=== PATIENT | female | born 1985 | race Caucasian/White ===

== ENCOUNTER 2016-11-09 02:56 | Observation (INO) | payer OTHER ==
[~2016-11-09] VITALS: Ht 158 cm; Wt 80.3 kg
[2016-11-09 03:01] VITALS: BP 125/66
== END 2016-11-09 07:10 | disposition home or self-care (01) ==
LOC: 4S 02:56
PROVIDERS: ADMIT Obstetrics & Gynecology; ATTEND Obstetrics & Gynecology
DX: O62.9 Abnormality of forces of labor, unspecified (principal); Z3A.39 39 weeks gestation of pregnancy
CPT/HCPCS: 59025; G0378

== ENCOUNTER 2016-11-11 05:55 | Inpatient (IN) | payer OTHER ==
[~2016-11-11] VITALS: Ht 157.5 cm; Wt 78.9 kg
[2016-11-11] MEDS ORDERED: PREN1TAB80 PO (06:55)
[2016-11-11 06:58] VITALS: BP 107/64
[2016-11-11] MEDS ORDERED: RINGERS SOLUTION,LACTATED 1,000 ML IV SCH ×2 (07:06→07:14)
[2016-11-11] MEDS ORDERED: RINGERS SOLUTION,LACTATED 1,000 ML IV PRN ×2 (07:14→07:21)
[2016-11-11] MEDS ORDERED: CITRIC ACID/SODIUM CITRATE 30 ML SOLUTION UDCUP PO PRN ×3 (07:15→07:30)
[2016-11-11] MEDS ORDERED: METOCLOPRAMIDE HCL 5 MG/ML 2 ML VIAL IVP PRN ×3 (07:15→07:30)
[2016-11-11] MEDS ORDERED: OXYTOCIN 30 UNITS/LACT RINGERS 500 ML IV PRN (07:21)
[2016-11-11] MEDS ORDERED: OXYGEN THERAPY IH SCH ×2 (08:00)
[2016-11-11] MEDS ORDERED: INFLUENZA VIRUS VACCINE QVS 2016-17 (3YR+)/PF 60 MCG/0.5 ML SYRINGE IM ONE (08:00)
[2016-11-11 08:05] LABS: BASOPHILS % (AUTO) 0.3 % (0.0-2.0); EOSINOPHILS % (AUTO) 0 % (1.0-6.0); HEMATOCRIT 34.8 % (36-46); HEMOGLOBIN 11.5 g/dL (12.0-16.0); LYMPHOCYTES # (AUTO) 1.3 K/uL (1.0-4.8); LYMPHOCYTES % (AUTO) 11.3 % (22.0-44.0); MEAN CORPUSCULAR HEMOGLOBIN 28.8 pg (26.0-34.0); MEAN CORPUSCULAR VOLUME 87 fL (80-100); MONOCYTES # (AUTO) 0.5 K/uL (0.1-1.0); MONOCYTES % (AUTO) 4.4 % (2.0-9.0); NEUTROPHILS # (AUTO) 9.3 K/uL (1.8-7.7); RED BLOOD CELL COUNT(AUTO) 3.99 MIL/uL (4.00-5.20); RED CELL DISTRIBUTION WIDTH 13.8 % (11.5-14.5); WHITE BLOOD COUNT (AUTO) 11.1 K/uL (4.5-11.0)
[2016-11-11] MEDS ORDERED: OXYTOCIN 30 UNITS/LACT RINGERS 500 ML IV SCH (08:45)
[2016-11-11] MEDS: FentaNYL CITRATE-PF 100 MCG/2 ML VIAL IVP PRN ×6 (09:03→12:32)
[2016-11-11] MEDS: RINGERS SOLUTION,LACTATED 1,000 ML IV SCH ×3 (09:03→23:45)
[2016-11-11] MEDS ORDERED: BUPIVACAINE HCL/PF 0.25% 10 ML VIAL ONE (12:26)
[2016-11-11] MEDS ORDERED: LIDOCAINE HCL/PF 2% 5 ML VIAL ONE ×3 (12:27→22:55)
[2016-11-11] MEDS ORDERED: FentaNYL/BUPIV 0.125%/NS/PF 200 ML ED ONE (12:27)
[2016-11-11] MEDS ORDERED: FentaNYL/BUPIV 0.125%/NS/PF 200 ML ED PRN (13:03)
[2016-11-11] MEDS ORDERED: ONDANSETRON HCL 4 MG/2 ML VIAL IVP PRN (13:15)
[2016-11-11] MEDS ORDERED: DiphenhydrAMINE HCL 50 MG/ML VIAL IVP PRN (13:15)
[2016-11-11] MEDS ORDERED: NALBUPHINE HCL 10 MG/ML VIAL IVP PRN ×2 (13:15)
[2016-11-11] MEDS ORDERED: PROMETHAZINE HCL 12.5 MG in SODIUM CHLORIDE 0.9% 50 ML IV PRN (13:15)
[2016-11-11] MEDS ORDERED: FentaNYL CITRATE-PF 100 MCG/2 ML VIAL ONE ×2 (19:29→22:55)
[2016-11-11] MEDS ORDERED: BUPIVACAINE HCL/PF 0.5% 10 ML VIAL ONE ×2 (19:29→22:55)
[2016-11-11] MEDS ORDERED: AMPICILLIN SODIUM 2 GM/NS 100 ML IV ONE (23:45)
[2016-11-12] MEDS ORDERED: AMPICILLIN SODIUM 1 GM/NS 50 ML IV SCH (04:00)
[2016-11-12] MEDS ORDERED: RINGERS SOLUTION,LACTATED 1,000 ML IV ONE (04:25)
[2016-11-12] MEDS ORDERED: FentaNYL CITRATE-PF 100 MCG/2 ML VIAL ONE (04:28)
[2016-11-12] MEDS ORDERED: CeFAZolin 2 GM/DEXTROSE 50 ML IV ONE (04:28)
[2016-11-12] MEDS ORDERED: SODIUM BICARBONATE 50 MEQ/50 ML VIAL ONE (04:29)
[2016-11-12] MEDS ORDERED: MORPHINE SULFATE/PF 1 MG/ML 10 ML AMP ONE (04:29)
[2016-11-12] MEDS ORDERED: LIDOCAINE HCL/PF 2% 5 ML VIAL ONE (04:30)
[2016-11-12] MEDS ORDERED: GLYCERIN/WITCH HAZEL LEAF 40 PADS JAR TP PRN (05:45)
[2016-11-12] MEDS ORDERED: LANOLIN 7 GM OINTMENT TP PRN (05:45)
[2016-11-12] MEDS ORDERED: OxyCODONE HCL/ACETAMINOPHEN 5-325 MG TABLET PO PRN (05:45)
[2016-11-12] MEDS ORDERED: NALOXONE HCL 0.4 MG/ML VIAL IVP PRN (06:00)
[2016-11-12] MEDS ORDERED: DiphenhydrAMINE HCL 50 MG/ML VIAL IVP PRN ×2 (06:00)
[2016-11-12] MEDS ORDERED: FentaNYL CITRATE-PF 100 MCG/2 ML VIAL IVP PRN ×3 (06:00)
[2016-11-12] MEDS ORDERED: NALBUPHINE HCL 10 MG/ML VIAL IVP PRN (06:00)
[2016-11-12] MEDS ORDERED: MEPERIDINE-PF 25 MG/ML SYRINGE IVP PRN (06:00)
[2016-11-12] MEDS ORDERED: PROMETHAZINE HCL 12.5 MG in SODIUM CHLORIDE 0.9% 50 ML IV PRN (06:00)
[2016-11-12] MEDS ORDERED: DEXAMETHASONE SOD PHOS 4 MG/ML VIAL IVP PRN (06:00)
[2016-11-12] MEDS ORDERED: ONDANSETRON HCL 4 MG/2 ML VIAL IVP PRN ×2 (06:00)
[2016-11-12] MEDS ORDERED: METHYLERGONOVINE MALEATE 0.2 MG/ML VIAL IM ONE (07:00)
[2016-11-12] MEDS: NALBUPHINE HCL 10 MG/ML VIAL IVP SCH ×3 (08:32→22:14)
[2016-11-12] MEDS: OXYTOCIN 20 UNITS in RINGERS SOLUTION,LACTATED 1,000 ML IV SCH ×2 (10:33→18:20)
[2016-11-12] MEDS ORDERED: EPINEPHrine 1:10,000 [1 MG/10 ML] SYRINGE IVP ONE (12:00)
[2016-11-12] MEDS ORDERED: OXYTOCIN 10 UNITS/ML VIAL IM ONE (12:00)
[2016-11-12] MEDS ORDERED: ONDANSETRON HCL 4 MG/2 ML VIAL IVP ONE (12:00)
[2016-11-13] MEDS: IBUPROFEN 600 MG TABLET PO PRN ×4 (00:39→23:56)
[2016-11-13] MEDS: OxyCODONE HCL/ACETAMINOPHEN 5-325 MG TABLET PO PRN ×2 (01:52→06:30)
[2016-11-13] MEDS: NALBUPHINE HCL 10 MG/ML VIAL IVP SCH (04:08)
[2016-11-13 06:49] LABS: BASOPHILS % (AUTO) 0.3 % (0.0-2.0); EOSINOPHILS % (AUTO) 0.6 % (1.0-6.0); HEMATOCRIT 31.9 % (36-46); HEMOGLOBIN 10.2 g/dL (12.0-16.0); LYMPHOCYTES % (AUTO) 11.8 % (22.0-44.0); MEAN CORPUSCULAR HEMOGLOBIN 28.3 pg (26.0-34.0); MEAN CORPUSCULAR HGB CONC 31.9 G/dL (31.0-37.0); MEAN CORPUSCULAR VOLUME 89 fL (80-100); MONOCYTES # (AUTO) 0.7 K/uL (0.1-1.0); MONOCYTES % (AUTO) 4.3 % (2.0-9.0); RED CELL DISTRIBUTION WIDTH 13.4 % (11.5-14.5); WHITE BLOOD COUNT (AUTO) 16.8 K/uL (4.5-11.0)
[2016-11-13] MEDS ORDERED: BENZOCAINE 20%/MENTHOL 56 GM SPRAY CANISTER TP PRN ×2 (07:00→07:30)
[2016-11-13] MEDS ORDERED: SENNA/DOCUSATE SODIUM 187-50 MG TABLET PO SCH (09:00)
[2016-11-13] MEDS: MAGNESIUM HYDROXIDE SUSPENSION 30 ML UDCUP PO SCH ×2 (09:47→21:11)
[2016-11-14] MEDS: IBUPROFEN 600 MG TABLET PO PRN (06:41)
[2016-11-14] MEDS ORDERED: IBUP-2070 PO (09:13)
[2016-11-14] MEDS ORDERED: DSS100 PO (09:14)
[2016-11-14] MEDS ORDERED: PERCT PO (09:15)
== END 2016-11-14 13:00 | disposition home or self-care (01) | DRG 766 ==
LOC: INTOOBSV 05:55 → 4S 05:55 → OBSVTOIN 05:55 → 4S 11-12 07:36
PROVIDERS: ADMIT Obstetrics & Gynecology; ATTEND Obstetrics & Gynecology
PROC: 3E0234Z Introduction of Serum, Toxoid and Vaccine into Muscle, Percutaneous Approach (ICD-10-PCS; 2016-11-11)
PROC: 10D00Z1 Extraction of Products of Conception, Low, Open Approach (ICD-10-PCS; principal; 2016-11-12)
DX: O62.0 Primary inadequate contractions (principal); O32.4XX0 Maternal care for high head at term, not applicable or unspecified; Z3A.39 39 weeks gestation of pregnancy; Z37.0 Single live birth; Z23 Encounter for immunization
CPT/HCPCS: 86850; 86900; 86901; 90471; J0171; J0290; J0690; J2300; J2405; J2590; J2765; J3010; J3490; J7120